=== PATIENT | male | born 2000 | race Two or more races ===

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

== ENCOUNTER 2022-06-24 23:36 | Emergency (ER) | payer MEDICAID ==
[~2022-06-24] VITALS: Ht 185.4 cm; Wt 104.5 kg
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
[2022-06-25] MEDS ORDERED: naloxone 2mg/2ml inj IH STA (00:06)
[2022-06-25] MEDS ORDERED: ondansetron 4mg rapidly disintigrating tab PO ONE (00:10)
[2022-06-25 04:03] VITALS: BP 101/59
== END 2022-06-25 04:06 | disposition home or self-care (01) ==
LOC: ER 23:36
DX: F10.129 Alcohol abuse with intoxication, unspecified (principal); Y90.9 Presence of alcohol in blood, level not specified
CPT/HCPCS: 36415; 80320; 99285; J2310

== ENCOUNTER 2023-12-09 10:11 | Emergency (ER) | payer MEDICAID ==
[~2023-12-09] VITALS: Ht 180.3 cm; Wt 113.9 kg
[2023-12-09 10:49] VITALS: BP 127/73; PULSE 74; RESP 16; TEMP 97.5; O2SAT 95
== END 2023-12-09 14:50 | disposition left against medical advice (07) ==
LOC: ER 10:11
DX: M54.9 Dorsalgia, unspecified (principal); Z53.21 Procedure and treatment not carried out due to patient leaving prior to being seen by health care provider
CPT/HCPCS: 99281

== ENCOUNTER 2025-10-30 21:20 | Emergency (ER) | payer MEDICAID ==
[~2025-10-30] VITALS: Ht 180.3 cm; Wt 98.0 kg
[2025-10-30 22:16] VITALS: BP 150/85; PULSE 102; RESP 15; TEMP 97.6; O2SAT 99
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
== END 2025-10-30 23:30 | disposition home or self-care (01) ==
LOC: ER 21:21
DX: S02.2XXA Fracture of nasal bones, initial encounter for closed fracture (principal); S02.5XXA Fracture of tooth (traumatic), initial encounter for closed fracture; S06.0X0A Concussion without loss of consciousness, initial encounter; G89.11 Acute pain due to trauma; F17.210 Nicotine dependence, cigarettes, uncomplicated; Z79.899 Other long term (current) drug therapy; Y04.0XXA Assault by unarmed brawl or fight, initial encounter; Y93.89 Activity, other specified; Y92.89 Other specified places as the place of occurrence of the external cause; Y99.8 Other external cause status
CPT/HCPCS: 70450; 70486; 72125; 99284